=== PATIENT | male | born 1990 | race American Indian/Alaskan Native ===

== ENCOUNTER 2017-03-27 23:22 | Emergency (ER) | payer SELFPAY ==
[2017-03-27 23:38] VITALS: BP 122/74; PULSE 88; RESP 17; TEMP 98.9; O2SAT 98
--- NOTE | 2017-03-28 00:41 | ED PDOC ---
HPI: Dental Pain/Injury Time Seen by Provider: 03/27/17 23:50 Chief Complaint (Nursing): Dental Pain History Per: Patient History/Exam Limitations: no limitations Onset/Duration Of Symptoms: Days Current Symptoms Are (Timing): Still Present Additional Complaint(s): c/o of tooth pain x 2 weeks, states he didnt go to a dentist b/c "none took [his ] insurance", now c/o of molar pain on L lower, no fevers. c/o of swelling as well. Past Medical History Reviewed: Historical Data, Nursing Documentation, Vital Signs Vital Signs: Last Vital Signs Temp 98.9 F 03/27/17 23:33 Pulse 88 03/27/17 23:33 Resp 17 03/27/17 23:33 BP 122/74 03/27/17 23:33 Pulse Ox 98 03/27/17 23:33 - Family History Family History: States: Unknown Family Hx - Immunization History Hx Tetanus Toxoid Vaccination: No Hx Influenza Vaccination: No Hx Pneumococcal Vaccination: No - Home Medications Home Medications: Ambulatory Orders Medication Instructions Recorded metroNIDAZOLE [Flagyl] 500 mg PO BID #14 tab 11/16/15 Amoxicillin/Clavulanate [Augmentin 1 tab PO BID 7 Days tab 03/28/17 875 MG-125 MG] Ibuprofen [Motrin Tab] 600 mg PO Q6 #30 tab 03/28/17 - Allergies Allergies/Adverse Reactions: Allergies Allergy/AdvReac Type Severity Reaction Status Date / Time No Known Allergies Allergy Unverified 11/16/15 02:21 Review of Systems ROS Statement: Except As Marked, All Systems Reviewed And Found Negative Constitutional: Negative for: Fever ENT: Positive for: Other (Tooth Pain) Physical Exam - Reviewed Nursing Documentation Reviewed: Yes Vital Signs Reviewed: Yes - Physical Exam Appears: Positive for: Well, Non-toxic, No Acute Distress Head Exam: Positive for: ATRAUMATIC, NORMAL INSPECTION, NORMOCEPHALIC ENT: Positive for: Other (tooth decay/erosion to L lower molar, TTP, gum swelling; poor dentition) - ECG O2 Sat by Pulse Oximetry: 98 Medical Decision Making Medical Decision Making: Pt. w/ poor dentition, gingivitis, tooth decay. Will require root canal. Placed viscous lido on tooth with good response. Will prescribe augmentin and encourage f/u w/ dentist tomorrow. Disposition - Clinical Impression Clinical Impression: Dental caries, Gingivitis - Patient ED Disposition Is Patient to be Admitted: No - Disposition Disposition: Routine/Home Disposition Time: 00:41 Condition: STABLE Prescriptions: Amoxicillin/Clavulanate [Augmentin 875 MG-125 MG] 1 tab PO BID 7 Days tab Ibuprofen [Motrin Tab] 600 mg PO Q6 #30 tab Instructions: Tooth Decay, Adult, Gingivitis (DC)
== END 2017-03-28 01:05 | disposition home or self-care (01) ==
LOC: H.ER 23:22
DX: K02.9 Dental caries, unspecified (principal); K05.10 Chronic gingivitis, plaque induced

== ENCOUNTER 2018-07-03 17:44 | Observation (INO) | payer BC, MEDICAID ==
[2018-07-03] MEDS ORDERED: Sodium Chloride 0.9% 1,000 ML IV STA ×2 (18:01→19:16)
--- NOTE | 2018-07-03 18:03 | ED PDOC ---
HPI: Abdomen Time Seen by Provider: 07/03/18 17:54 Chief Complaint (Nursing): Abdominal Pain Chief Complaint (Provider): Abdominal Pain History Per: Patient History/Exam Limitations: no limitations Onset/Duration Of Symptoms: Hrs ([employer]) Current Symptoms Are (Timing): Still Present Additional Complaint(s): 28 year old male with no medical history presents to the ED with generalized abdominal pain onset [employer]. Patient denies vomiting, diarrhea, pain with urination, or recent travel. He states he took x4 500mg niacin tablets last night. Patient denies similar symptoms in the past. PMD: none provided Past Medical History Reviewed: Historical Data, Nursing Documentation, Vital Signs Primary Care Provider: FAMILY PROVIDER,NO - Medical History PMH: No Chronic Diseases - Surgical History Surgical History: No Surg Hx - Family History Family History: States: Unknown Family Hx - Immunization History Hx Tetanus Toxoid Vaccination: No Hx Influenza Vaccination: No Hx Pneumococcal Vaccination: No - Home Medications Home Medications: Ambulatory Orders Medication Instructions Recorded metroNIDAZOLE [Flagyl] 500 mg PO BID #14 tab 11/16/15 Amoxicillin/Clavulanate [Augmentin 1 tab PO BID 7 Days tab 03/28/17 875 MG-125 MG] Ibuprofen [Motrin Tab] 600 mg PO Q6 #30 tab 03/28/17 - Allergies Allergies/Adverse Reactions: Allergies Allergy/AdvReac Type Severity Reaction Status Date / Time No Known Allergies Allergy Verified 07/03/18 17:46 Review of Systems ROS Statement: Except As Marked, All Systems Reviewed And Found Negative Gastrointestinal: Positive for: Abdominal Pain. Negative for: Nausea, Vomiting Genitourinary Male: Negative for: Dysuria Physical Exam - Reviewed Nursing Documentation Reviewed: Yes Vital Signs Reviewed: Yes - Physical Exam Appears: Positive for: Uncomfortable Gastrointestinal/Abdominal: Positive for: Tenderness (generalized abdominal pain ) - Laboratory Results Result Diagrams: 07/03/18 18:22 07/03/18 18:22 Medical Decision Making Medical Decision Making: Time: 1799 Plan: --CT abdomen and pelvis --CMP --Lipase --U dip --CBC --PTT --PT/INR --Morphine 2 mg IV --UA Time: 2017 CT abdomen and pelvis Findings: Chest: The visualized lung bases are clear. Abdomen: The liver, spleen, pancreas, kidneys, gallbladder, and adrenal glands are unremarkable. The aorta is within normal limits. There is no evidence of abdominal lymphadenopathy or ascites. There is moderate bowel wall thickening and fluid distention of the small bowel. Pelvis: The colon is unremarkable, with no obstructive or inflammatory changes. The appendix is only partially visualized but appears grossly within normal limits. The urinary bladder is within normal limits. The other pelvic structures appear grossly intact. There is no evidence of pelvic lymphadenopathy or ascites. Bones: There are no suspicious osseous abnormalities seen. Impression: 1. Mild enteritis. No evidence of bowel obstruction.2. The colon, as well as the appendix, appears unremarkable. 3. The kidneys and renal collecting systems are grossly within normal limits. Time: 2049 --On reevaluation, patient reports pain is a 7 out of 10 in severity. Patient has LLQ tenderness with no guarding or rebound. Patient to be admitted under Dr. Roberts. Scribe Attestation: Documented by Lynn Fregoso, acting as a scribe for Saige Adam MD. Provider Scribe Attestation: All medical record entries made by the Scribe were at my direction and personally dictated by me. I have reviewed the chart and agree that the record accurately reflects my personal performance of the history, physical exam, medical decision making, and the department course for this patient. I have also personally directed, reviewed, and agree with the discharge instructions and disposition. Disposition - Clinical Impression Clinical Impression: Intractable abdominal pain, Enteritis - Disposition Disposition Time: 20:45 Condition: STABLE - Pt Status Changed To: Hospital Disposition Of: Observation - POA Present On Arrival: None
[2018-07-03 18:34] LABS: BASO % 0.4 % (0.0-2.0); EOS % 0.5 % (0.0-4.0); HEMOGLOBIN 13.8 g/dL (12.0-18.0); LYMPH % 34.8 % (20.0-40.0); MEAN CELL VOLUME 94.9 fl (80.0-94.0); MEAN CORPUSCULAR HGB CONC 33.8 g/dL (33.0-37.0); MEAN PLATELET VOLUME 8.1 fl (7.2-11.7); MONO # 0.7 K/uL (0.0-0.8); MONO % 11.5 % (0.0-10.0); NEUT # 3.1 K/uL (1.8-7.0); NEUT % 52.8 % (50.0-75.0); NRBC % 0.1 % (0.0-0.0); RBC 4.31 Mil/uL (4.40-5.90); WHITE BLOOD COUNT 5.8 K/uL (4.8-10.8)
[2018-07-03 18:43] LABS: INR 1.2; PROTHROMBIN TIME 13.6 Seconds (9.8-13.1)
[2018-07-03 18:48] LABS: ALB/GLOB RATIO 1.6 (1.0-2.1); ALBUMIN 4.5 g/dL (3.5-5.0); ALT/SGPT 42 U/L (21-72); AST/SGOT 57 U/L (17-59); BLOOD UREA NITROGEN 13 mg/dl (9-20); CALCIUM 9.3 mg/dL (8.4-10.2); GFR NON-AFRICAN AMERICAN > 60; LIPASE 87 U/L (23-300)
[2018-07-03] MEDS ORDERED: Iohexol 300 100 ML IJ ONE (18:50)
[2018-07-03] MEDS ORDERED: Sodium Chloride 0.9% 50 ML IV ONE (18:50)
[2018-07-03 18:54] LABS: ACETAMINOPHEN < 10.0 ug/ml (10.0-30.0); SALICYLATE < 1.0 mg/dl
[2018-07-03 19:09] LABS: URINE BILIRUBIN NEGATIVE (NEGATIVE); URINE BLOOD NEGATIVE (NEGATIVE); URINE CLARITY SLIGHTY-CLOUDY (Clear); URINE COLOR YELLOW (YELLOW); URINE GLUCOSE (UA) NEG (NEGATIVE); URINE LEUKOCYTE ESTERASE TRACE Leu/uL (Negative); URINE PROTEIN 30 mg/dL (NEGATIVE); URINE UROBILINOGEN 0.2-1.0 mg/dL (0.2-1.0)
[2018-07-03 19:40] LABS: BARBITURATES, UR NEGATIVE (NEGATIVE); BENZODIAZEPINES, UR NEGATIVE (NEGATIVE); OPIATES, UR POSITIVE (NEGATIVE); PHENCYCLIDINE, UR NEGATIVE (NEGATIVE)
[2018-07-03 21:28] VITALS: RESP 18
--- NOTE | 2018-07-03 21:43 | CP.PCM.HP ---
<Kimberly Wagoner - Last Filed: 07/03/18 21:54> History of Present Illness - History of Present Illness History of Present Illness: CC: abdominal pain HPI: 28 YO Male with no sig PMHx presents to [facility] ED for abdominal pain. Patient received Ativan and is sleepy, history is obtained from mother and girlfriend by bedside. Patient was at normal state of health, until around 6PM when he suddenly started endorsing abdominal pain, he said it was in the upper abdomen and by the time they presented to the ED it moved to the lower part of the abdomen. Patient did not have associated nausea, trauma, vomiting, diarrhea/constipation, fevers, chills or urinary symptoms. Girlfriend states that they ate chicken rolls 1 hr prior to abdominal pain, no drug use endorsed, unknown last use of marijuana and patient took 4 pills of niacin last night. \ Denies recent travels. PMHx: denies SurgHx: denie SHx: denies ETOH, occasional tobacco and marijuana FHx: Mother with HTN NKDA Present on Admission - Present on Admission Any Indicators Present on Admission: No Review of Systems - Constitutional Constitutional: absent: Chills, Fever - Cardiovascular Cardiovascular: absent: Chest Pain, Dyspnea - Respiratory Respiratory: absent: Cough, Dyspnea - Gastrointestinal Gastrointestinal: absent: Abdominal Pain, Diarrhea, Vomiting - Genitourinary Genitourinary: absent: Difficulty Urinating, Dysuria Past Patient History - Past Social History Smoking Status: Current Some Days Smoker Alcohol: None Drugs: Cannabis - PSYCHIATRIC Hx Substance Use: No - SURGICAL HISTORY Hx Surgeries: Yes (hand sx) - ANESTHESIA Hx Anesthesia: Yes Hx Anesthesia Reactions: No Meds Allergies/Adverse Reactions: Allergies Allergy/AdvReac Type Severity Reaction Status Date / Time No Known Allergies Allergy Verified 07/03/18 17:46 Physical Exam - Constitutional Appears: No Acute Distress, Other (sleeping) - Head Exam Head Exam: NORMAL INSPECTION - Eye Exam Eye Exam: EOMI, Normal appearance - ENT Exam ENT Exam: Mucous Membranes Moist - Respiratory Exam Respiratory Exam: Clear to Auscultation Bilateral, NORMAL BREATHING PATTERN. absent: Wheezes - Cardiovascular Exam Cardiovascular Exam: REGULAR RHYTHM, +S1, +S2 - GI/Abdominal Exam GI & Abdominal Exam: Normal Bowel Sounds, Soft. absent: Distended, Guarding, Tenderness - Extremities Exam Extremities exam: Positive for: normal inspection. Negative for: calf tenderness, pedal edema - Back Exam Back exam: NORMAL INSPECTION - Neurological Exam Additional comments: sleepy and lethargic, was recently give ativan - Skin Skin Exam: Dry, Intact, Normal Color, Warm Results - Vital Signs Recent Vital Signs: Last Vital Signs Temp 98.6 F 07/03/18 21:27 Pulse 77 07/03/18 21:27 Resp 18 07/03/18 21:27 BP 127/74 07/03/18 21:27 Pulse Ox 99 07/03/18 21:27 - Labs Result Diagrams: 07/03/18 18:22 07/03/18 18:22 Labs: Laboratory Results - last 24 hr 07/03/18 07/03/18 07/03/18 18:22 18:22 18:22 WBC 5.8 RBC 4.31 L Hgb 13.8 Hct 40.9 MCV 94.9 H MCH 32.0 H MCHC 33.8 RDW 14.0 Plt Count 274 MPV 8.1 Neut % (Auto) 52.8 Lymph % (Auto) 34.8 S[place]ent % (Auto) 11.5 H Eos % (Auto) 0.5 Baso % (Auto) 0.4 Neut # (Auto) 3.1 Lymph # (Auto) 2.0 S[place]ent # (Auto) 0.7 Eos # (Auto) 0.0 Baso # (Auto) 0.0 PT 13.6 H INR 1.2 APTT 31.0 Sodium 139 Potassium 4.4 Chloride 101 Carbon Dioxide 28 Anion Gap 14 BUN 13 Creatinine 1.0 Est GFR ( Amer) > 60 Est GFR (Non-Af Amer) > 60 Random Glucose 110 Calcium 9.3 Total Bilirubin 1.0 AST 57 ALT 42 Alkaline Phosphatase 52 Total Protein 7.2 Albumin 4.5 Globulin 2.8 Albumin/Globulin Ratio 1.6 Lipase 87 Urine Color Urine Clarity Urine pH Ur Specific [place] Urine Protein Urine Glucose (UA) Urine Ketones Urine Blood Urine Nitrate Urine Bilirubin Urine Urobilinogen Ur Leukocyte Esterase Urine RBC (Auto) Urine Microscopic WBC Salicylates Urine Opiates Screen Urine Methadone Screen Acetaminophen Ur Barbiturates Screen Ur Phencyclidine Scrn Ur Amphetamines Screen U Benzodiazepines Scrn U Oth Cocaine Metabols U Cannabinoids Screen Alcohol, Quantitative < 10 07/03/18 07/03/18 07/03/18 18:30 19:00 19:00 WBC RBC Hgb Hct MCV MCH MCHC RDW Plt Count MPV Neut % (Auto) Lymph % (Auto) [place] % (Auto) Eos % (Auto) Baso % (Auto) Neut # (Auto) Lymph # (Auto) [place] # (Auto) Eos # (Auto) Baso # (Auto) PT INR APTT Sodium Potassium Chloride Carbon Dioxide Anion Gap BUN Creatinine Est GFR ( Amer) Est GFR (Non-Af Amer) Random Glucose Calcium Total Bilirubin AST ALT Alkaline Phosphatase Total Protein Albumin Globulin Albumin/Globulin Ratio Lipase Urine Color Yellow Urine Clarity Slighty-cloudy Urine pH 6.0 Ur Specific [place] 1.030 Urine Protein 30 Urine Glucose (UA) Neg Urine Ketones Negative Urine Blood Negative Urine Nitrate Negative Urine Bilirubin Negative Urine Urobilinogen 0.2-1.0 Ur Leukocyte Esterase Trace Urine RBC (Auto) 1 Urine Microscopic WBC 1 Salicylates < 1.0 Urine Opiates Screen Positive H Urine Methadone Screen Negative Acetaminophen < 10.0 L Ur Barbiturates Screen Negative Ur Phencyclidine Scrn Negative Ur Amphetamines Screen Negative U Benzodiazepines Scrn Negative U Oth Cocaine Metabols Negative U Cannabinoids Screen Positive H Alcohol, Quantitative Assessment & Plan - Assessment and Plan (Free Text) Assessment: Assessment/Plan: 28 YO Male with no sig PMHx is admitted for intractable abdominal pain. Given 4 mg IVP of morphine with mild improvement of pain but pain persisted req admission. Intractable abdominal pain -acute -CT abd and pelvis sig for Mild enteritis, no other pathologies identified -given acuity and severity of symptoms also consider culprits like food poisonin g, vs gas pain -bowel rest, npo -pain management -zofran prn as needed -advance diet as tolerated in the AM DVT prolx -Lovenox SC <Fritz Roberts - Last Filed: 07/04/18 06:42> Results - Vital Signs Recent Vital Signs: Last Vital Signs Temp 97.6 F 07/04/18 03:18 Pulse 75 07/04/18 03:18 Resp 18 07/04/18 03:18 BP 122/81 07/04/18 03:18 Pulse Ox 97 07/04/18 03:18 - Labs Result Diagrams: 07/03/18 18:22 07/03/18 18:22 Labs: Laboratory Results - last 24 hr 07/03/18 07/03/18 07/03/18 18:22 18:22 18:22 WBC 5.8 RBC 4.31 L Hgb 13.8 Hct 40.9 MCV 94.9 H MCH 32.0 H MCHC 33.8 RDW 14.0 Plt Count 274 MPV 8.1 Neut % (Auto) 52.8 Lymph % (Auto) 34.8 Sargent % (Auto) 11.5 H Eos % (Auto) 0.5 Baso % (Auto) 0.4 Neut # (Auto) 3.1 Lymph # (Auto) 2.0 [place] # (Auto) 0.7 Eos # (Auto) 0.0 Baso # (Auto) 0.0 PT 13.6 H INR 1.2 APTT 31.0 Sodium 139 Potassium 4.4 Chloride 101 Carbon Dioxide 28 Anion Gap 14 BUN 13 Creatinine 1.0 Est GFR ( Amer) > 60 Est GFR (Non-Af Amer) > 60 Random Glucose 110 Calcium 9.3 Total Bilirubin 1.0 AST 57 ALT 42 Alkaline Phosphatase 52 Total Protein 7.2 Albumin 4.5 Globulin 2.8 Albumin/Globulin Ratio 1.6 Lipase 87 Urine Color Urine Clarity Urine pH Ur Specific [place] Urine Protein Urine Glucose (UA) Urine Ketones Urine Blood Urine Nitrate Urine Bilirubin Urine Urobilinogen Ur Leukocyte Esterase Urine RBC (Auto) Urine Microscopic WBC Salicylates Urine Opiates Screen Urine Methadone Screen Acetaminophen Ur Barbiturates Screen Ur Phencyclidine Scrn Ur Amphetamines Screen U Benzodiazepines Scrn U Oth Cocaine Metabols U Cannabinoids Screen Alcohol, Quantitative < 10 07/03/18 07/03/18 07/03/18 18:30 19:00 19:00 WBC RBC Hgb Hct MCV MCH MCHC RDW Plt Count MPV Neut % (Auto) Lymph % (Auto) [place] % (Auto) Eos % (Auto) Baso % (Auto) Neut # (Auto) Lymph # (Auto) [place] # (Auto) Eos # (Auto) Baso # (Auto) PT INR APTT Sodium Potassium Chloride Carbon Dioxide Anion Gap BUN Creatinine Est GFR ( Amer) Est GFR (Non-Af Amer) Random Glucose Calcium Total Bilirubin AST ALT Alkaline Phosphatase Total Protein Albumin Globulin Albumin/Globulin Ratio Lipase Urine Color Yellow Urine Clarity Slighty-cloudy Urine pH 6.0 Ur Specific [place] 1.030 Urine Protein 30 Urine Glucose (UA) Neg Urine Ketones Negative Urine Blood Negative Urine Nitrate Negative Urine Bilirubin Negative Urine Urobilinogen 0.2-1.0 Ur Leukocyte Esterase Trace Urine RBC (Auto) 1 Urine Microscopic WBC 1 Salicylates < 1.0 Urine Opiates Screen Positive H Urine Methadone Screen Negative Acetaminophen < 10.0 L Ur Barbiturates Screen Negative Ur Phencyclidine Scrn Negative Ur Amphetamines Screen Negative U Benzodiazepines Scrn Negative U Oth Cocaine Metabols Negative U Cannabinoids Screen Positive H Alcohol, Quantitative Attending/Attestation - Attestation I have personally seen and examined this patient.: Yes I have fully participated in the care of the patient.: Yes I have reviewed all pertinent clinical information: Yes Notes (Text): 07/04/18 06:42 07/04/18 06:35 I saw, examined and discussed this patient with Dr Wagoner. I agree with the assessment and plan outlined. This 28 year old male with no significant past medical hx comes with generalized abdominal pain not relieved with analgesics in the ED. CT scan of Abdomen/Pelvis shows mild enteritis. Urine drug screen shows Opiates and Marijuana positive. The patient is placed on observation for intractable abdominal pain. He will be treated with Toradol for pain, Bowel rest and IV Fluids. Fritz Roberts MD.
[2018-07-03] MEDS ORDERED: Potassium Ch 20mEq in D5-1/2NS 1,000 ML IV SCH (22:30)
[2018-07-04 03:18] VITALS: BP 122/81; TEMP 97.6; O2SAT 97
[2018-07-04 03:46] VITALS: PULSE 84
--- NOTE | 2018-07-04 06:21 | CP.PCM.PCO ---
<Kimberly Wagoner - Last Filed: 07/04/18 06:14> Against Medical Advice - AMA Patient Left Against Medical Advice: The patient declines admission to the hospital and wishes to leave the Hospital (MED/Surg floor). This action is against my medical advice. This decision was made with informed refusal. The patient was told that admission to the hospital is necessary. Explanation of the reasons why were discussed. The risks of leaving were explained to the patient and include, but are not limited to, worsening of known or currently unknown conditions, permanent disability and from undiagnosed or untreated conditions. The patient has the capacity to make this informed decision and understands my explanation of the current medical problem and risks of leaving. The patient voluntarily accepts these risks and signed an AMA form documenting our conversation. The patient was given the opportunity to ask questions and reconsider. The patient was encouraged to return to the Emergency Department at any time for further care. Assessment/Plan - Assessment and Plan (Free Text) Assessment: 28 YO Male was admitted for mild enteritis and intractable abdominal pain. This MD was initially called to informed that patient has eloped around 3:50AM, Susi bloom was called, and [employer] was notified. Patient was found approximately 30 minutes later at home with Hep lock on R AC. On presentation back to the hospital, this MD was called back into the room because patient desired to sign out AMA. Patient was awake and alert, and was fully capable of making informed decision. Benefits and risk of leaving AMA was discussed with patient in detail, benefits including but not limited to finding source of pain, improvement of enteritis, resolution of pain. Risks including but not limited to worsening pain, infection, sepsis or even . Patient understands the risks and has signed the form. His mother subsequently presented in the room, and AMA was discussed and explained to her. Patient was seen leaving Med/Surg with his mother this AM. <Fritz Roberts - Last Filed: 07/04/18 06:44> Against Medical Advice - AMA Patient Left Against Medical Advice: The patient declines admission to the hospital and wishes to leave the Emergency Department. This action is against my medical advice. This decision was made with informed refusal. The patient was told that admission to the hospital is necessary. Explanation of the reasons why were discussed. The risks of leaving were explained to the patient and include, but are not limited to, worsening of known or currently unknown conditions, permanent disability and from undiagnosed or untreated conditions. The patient has the capacity to make this informed decision and understands my explanation of the current medical problem and risks of leaving. The patient voluntarily accepts these risks and signed an AMA form documenting our conversation. The patient was given the opportunity to ask questions and reconsider. The patient was encouraged to return to the Emergency Department at any time for further care. Attending/Attestation - Attestation I have personally seen and examined this patient.: Yes I have fully participated in the care of the patient.: Yes I have reviewed all pertinent clinical information: Yes
--- NOTE | 2018-07-04 08:52 | CARD ---
APPROVED REPORT Date of service: 07/03/2018 EKG Measurement Heart [id number] <Conclusion> Normal sinus rhythm Normal ECG
[2018-07-04] MEDS ORDERED: Enoxaparin 40 mg Syringe SC SCH (09:00)
--- NOTE | 2018-07-04 09:35 | RAD ---
Date of service: 07/03/2018 HISTORY: Abd pain COMPARISON: No prior. TECHNIQUE: 1 view obtained. FINDINGS: LUNGS: No active pulmonary disease. PLEURA: No significant pleural effusion identified, no pneumothorax apparent. CARDIOVASCULAR: No aortic atherosclerotic calcification present. Normal cardiac size. No pulmonary vascular congestion. OSSEOUS STRUCTURES: No significant abnormalities. VISUALIZED UPPER ABDOMEN: Normal. OTHER FINDINGS: None. IMPRESSION: No acute cardiopulmonary disease appreciated.
--- NOTE | 2018-07-04 09:58 | CT ---
Date of service: 07/03/2018 PROCEDURE: CT Abdomen and Pelvis with contrast HISTORY: Abd pain COMPARISON: None. TECHNIQUE: Following the intravenous administration of iodinated contrast material, a CT examination of the abdomen and pelvis was performed from the domes of the diaphragms to the symphysis pubis with reformatted datasets provided in axial, sagittal and coronal planes. Oral contrast was not administered as per referring physician request. Contrast dose: Omnipaque 300, 95 cc Radiation dose: Total exam DLP = 372.79 mGy-cm. This CT exam was performed using one or more of the following dose reduction techniques: Automated exposure control, adjustment of the mA and/or kV according to patient size, and/or use of iterative reconstruction technique. FINDINGS: LOWER THORAX: Unremarkable. LIVER: Unremarkable. No gross lesion or ductal dilatation. GALLBLADDER AND BILE DUCTS: Unremarkable. PANCREAS: Unremarkable. No gross lesion or ductal dilatation. SPLEEN: Unremarkable. ADRENALS: Unremarkable. No mass. KIDNEYS AND URETERS: Unremarkable. No hydronephrosis. No solid mass. VASCULATURE: Unremarkable. No aortic aneurysm. No aortic atherosclerotic calcification or mural plaque present. BOWEL: Evaluation of the gastrointestinal tract is limited due to the lack of oral contrast administration. No definite bowel obstruction appreciable. The lack of intra peritoneal fat limits evaluation of the bowel overall as well as lack of oral contrast. Fluid and retained food are identified distending the stomach somewhat with no gross mural thickening evident. No definitive suspicious small large-bowel mural thickening appreciable. APPENDIX: The appendix appears retrocecal, normal in caliber without definitive appendicitis pattern at this time. PERITONEUM: Unremarkable. No free fluid. No free air. LYMPH NODES: Unremarkable. No enlarged lymph nodes. BLADDER: Unremarkable. REPRODUCTIVE: Unremarkable. BONES: No acute fracture. OTHER FINDINGS: None. IMPRESSION: No definitive acute abdominal or pelvic findings appreciable at this time. Lack of intra peritoneal fat and oral contrast limited evaluation of the gastrointestinal tract. If clinical service remains then follow-up CT of the abdomen pelvis with oral and intravenous contrast is recommended. Preliminary report provided by Dee, 07/03/2018, 6:18 p.m..
== END 2018-07-04 05:15 | disposition left against medical advice (07) ==
LOC: H.ER 17:44 → H.ERHOLD 20:50 → H.MEDSURG1 21:58
PROVIDERS: ADMIT Internal Medicine; ATTEND Internal Medicine
DX: K52.9 Noninfective gastroenteritis and colitis, unspecified (principal); Z72.0 Tobacco use; F12.90 Cannabis use, unspecified, uncomplicated; Z79.2 Long term (current) use of antibiotics
CPT/HCPCS: 71045; 74177; 80053; 81003; 83690; 85025; 85610; 85730; 93005; 96361; 96374; 96375; 99283; G0378; G0480; J2060; J2270; J7030; Q9967